=== PATIENT | female | born 1960 | race Caucasian/White ===

== ENCOUNTER 2019-02-06 12:56 | Emergency (ER) | payer OTHER ==
[2019-02-06] MEDS ORDERED: Diphtheria/Tetanus Toxoids,Adult (Td) 0.5 ML SDV IM ONE (13:44)
--- NOTE | 2019-02-06 13:44 | EDM.PDOC ---
<Lizbeth Rodrigez M - Last Filed: 02/06/19 15:06> ED HPI GENERAL MEDICAL PROBLEM - General Chief Complaint: Laceration Stated Complaint: LEFT HAND LACERATION Time Seen by Provider: 02/06/19 13:30 History Limitations: Reports: No Limitations - History of Present Illness INITIAL COMMENTS - FREE TEXT/NARRATIVE: After cut cheesecake, tried to get piece out of ambrosio with knife. It slipped and she cut the web at the base of her index finger and third finger of left hand. Tetanus will be updated at this visit. Onset: Sudden - Related Data Allergies Allergy/AdvReac Type Severity Reaction Status Date / Time Sulfa (Sulfonamide Allergy Hives Verified 02/06/19 13:07 Antibiotics) Home Meds: Home Meds Calcium Carbonate/Vitamin D3 [Calcium 600 + Vit D 200] 1 tab PO DAILY 12/29/17 [ History] Cetirizine [ZyrTEC] 10 mg PO DAILY 12/29/17 [History] Fluticasone Propionate [Flonase] 2 spray NASBOTH DAILY 12/29/17 [History] Glucosamine/D3/Boswellia Raiaz [Glucosamine Complex Tablet] 1 tab PO DAILY 12/29 [History] Past Medical History Musculoskeletal History: Reports: Other (See Below) Other Musculoskeletal History: right shoulder pain Social & Family History - Tobacco Use Smoking Status *Q: Never Smoker - Caffeine Use Caffeine Use: Reports: None ED ROS GENERAL - Review of Systems Review Of Systems: ROS reveals no pertinent complaints other than HPI. Constitutional: Reports: No Symptoms HEENT: Reports: No Symptoms Musculoskeletal: Reports: Other (laceration of web between left index and third finger. ) Neurological: Reports: No Symptoms Psychiatric: Reports: No Symptoms Hematologic/Lymphatic: Reports: No Symptoms Immunologic: Reports: No Symptoms ED EXAM, SKIN/RASH Exam: See Below Exam Limited By: No Limitations General Appearance: Alert, WD/WN, No Apparent Distress Extremities: Other (left hand with laceration in webbing between thumb and index finger. Copious bleeding, responds to pressure. Able to move all aspects of each joint independently. Normal sensation to all aspects of both index finger and third finger. ) ED SKIN PROCEDURES - Laceration/Wound Repair Left Sides of Digit - 2nd (Index) Lac/Wound length In cm: 3.5 Appearance: Superficial Anesthetic Type: Local Local Anesthesia - Lidocaine (Xylocaine): 1% with EPI Local Anesthetic Volume: 5cc Skin Prep: Chlorhexidine (Hibiciens) Saline Irrigation (cc's): 150 (mL sterile saline) Closed with: Sutures Suture Size: 4-0 # of Sutures: 8 Course - Vital Signs Text/Narrative:: Will need to bring Tetanus up to date with this visit. 4.0 Ethilon interrupted sutures, #8. Wound edges approximated nicely. Bacitracin and gauze wrap to apply pressure to wound. Last Recorded V/S: Last Vital Signs Temp 36.0 C 02/06/19 13:12 Pulse 79 02/06/19 13:12 Resp 14 02/06/19 13:12 BP 136/78 02/06/19 13:12 Pulse Ox 98 02/06/19 13:12 - Orders/Labs/Meds Orders: Active Orders 24 hr Category Date Time Status Vaccines to be Administered [RC] PER UNIT ROUTINE Care 02/06/19 13:45 Active Meds: Medications Discontinued Medications Generic Name Dose Route Start Last Admin Trade Name Nishi PRN Reason Stop Dose Admin Bacitracin 1 dose 02/06/19 15:02 02/06/19 15:06 Bacitracin Oint 1 Gm TOP 02/06/19 15:03 1 dose ONETIME ONE Administration Diphtheria/Tetanus/Acell Pertussis 0.5 ml 02/06/19 15:06 02/06/19 15:07 Adacel IM 02/06/19 15:07 0.5 ml .ONCE ONE Administration Lidocaine/Epinephrine 50 ml 02/06/19 13:48 02/06/19 15:05 Xylocaine 1% With Epinephrine 1:100,000 INJECT 02/06/19 13:49 50 ml ONETIME ONE Administration Tetanus/Diphtheria Toxoids 0.5 ml 02/06/19 13:44 02/06/19 15:08 Tenivac IM 02/06/19 13:45 Not Given .ONCE ONE Departure - Departure Time of Disposition: 15:11 Disposition: Home, Self-Care 01 Clinical Impression: Laceration of hand without complication, including fingers - Discharge Information *PRESCRIPTION DRUG MONITORING PROGRAM REVIEWED*: No *COPY OF PRESCRIPTION DRUG MONITORING REPORT IN PATIENT KAMRAN: No Instructions: Wound Infection Referrals: Mirela Miguel MD [Primary Care Provider] - Forms: ED Department Discharge Additional Instructions: Keep wound clean and dry and covered. Apply Bacitracin under bandage and keep covered, especially at work. Return to clinic for suture removal after 10 days. To see PCP if signs of infection, redness, drainage, redness spreading up hand. Patient understands wound care instructions without questions. <Ac Ramos - Last Filed: 02/06/19 18:09> Course - Re-Assessments/Exams Free Text/Narrative Re-Assessment/Exam: 02/06/19 18:08 I examined this lady and supervised repair of laceration to her left hand in the webbing between the index and middle fingers. The laceration is approximately 2 cm long and penetrates into the subcutaneous tissues but does not involve any tendons nerve or joint. The wound was cleaned and copiously lavaged with normal saline. It was closed with simple interrupted sutures. I agree with the nurse practitioners treatment of this patient
[2019-02-06] MEDS ORDERED: Lidocaine 1% with EPINEPHrine 1:100,000 50 ML MDV INJECT ONE (13:48)
[2019-02-06] MEDS ORDERED: Bacitracin Oint 1 GM U/D Packet TOP ONE (15:02)
[2019-02-06] MEDS ORDERED: Diphtheria,Pertussis(Acell),Tetanus Vaccine 0.5 ML SDV IM ONE (15:06)
== END 2019-02-06 15:18 | disposition home or self-care (01) ==
LOC: JP.ED 12:56
DX: S61.412A Laceration without foreign body of left hand, initial encounter (principal); Z88.2 Allergy status to sulfonamides; Z79.899 Other long term (current) drug therapy; W26.0XXA Contact with knife, initial encounter; Z23 Encounter for immunization
CPT/HCPCS: 12002; 90471; 90715; 99282

== ENCOUNTER 2020-04-07 08:29 | Day surgery (SDC) | payer OTHER ==
[2020-04-07] MEDS ORDERED: Midazolam 1 MG/ML 2 ML SDV ONE (08:43)
[2020-04-07] MEDS ORDERED: fentaNYL 100 MCG/2 ML SDV ONE (08:43)
[2020-04-07] MEDS ORDERED: Propofol 200 MG/20 ML SDV ONE (08:43)
[2020-04-07] MEDS ORDERED: Sodium Chloride 0.9% 1,000 ML IV SCH (09:00)
[2020-04-07] MEDS ORDERED: Ondansetron 4 MG/2 ML SDV ONE (09:13)
[2020-04-07] MEDS ORDERED: Dexamethasone 4 MG/ML SDV ONE (09:13)
--- NOTE | 2020-04-07 12:22 | OR ---
DATE OF PROCEDURE: 04/07/2020 SURGEON: Marquez Enrique MD PROCEDURE: Colonoscopy. FINDINGS: Rectal polyp, approximately 5 mm, completely removed using cold biopsy forceps. COMPLICATIONS: None. T RAIL TURNER: None. ANESTHESIA: MAC. PREOPERATIVE DIAGNOSIS: Screening colonoscopy. POSTOPERATIVE DIAGNOSIS: Screening colonoscopy. RISKS: Risks, benefits, alternatives, and limitations including, but not limited to infection, bleeding, and perforation were explained to the patient, who wished to proceed. PROCEDURE IN DETAIL: The patient was placed in left lateral decubitus position. Digital rectal exam was performed without abnormality. Scope was introduced and advanced atraumatically to the ileocecal valve. A photo was taken of the appendiceal orifice. Scope was brought back through the ascending, transverse, descending colon, and retroflexed. In the rectum, a small polyp was identified and completely removed using cold biopsy forceps. No other abnormalities on retroflexion. The patient tolerated the procedure well. Marquez Enrique MD /[id number]
== END 2020-04-07 11:04 | disposition home or self-care (01) ==
LOC: JP.SDS 08:29
PROVIDERS: ATTEND Surgery
DX: Z12.11 Encounter for screening for malignant neoplasm of colon (principal); K62.1 Rectal polyp; R09.89 Other specified symptoms and signs involving the circulatory and respiratory systems; Z91.09 Other allergy status, other than to drugs and biological substances; Z88.2 Allergy status to sulfonamides; Z98.890 Other specified postprocedural states
CPT/HCPCS: 45380; J1100; J2250; J2405; J2704; J3010; J7030; 88305